=== PATIENT | female | born 1995 | race Two or more races ===

== ENCOUNTER 2022-01-24 10:10 | Emergency (ER) | payer SELFPAY ==
[~2022-01-24] VITALS: Ht 147.3 cm; Wt 49.3 kg
[2022-01-24] MEDS ORDERED: IV NORMAL SALINE 1000ML BAG 1,000 ML IV ONE (11:30)
[2022-01-24] MEDS ORDERED: KETOROLAC 30 MG/ML VIAL. IVP ONE (11:30)
[2022-01-24] MEDS ORDERED: ONDANSETRON PF 4 MG/2 ML VIAL. IVP ONE (11:30)
[2022-01-24 11:31] LABS: BASO % 0 % (0-3); EOS # 0.1 x10^3/uL (0.0-0.7); EOS % 2 % (0-3); HEMATOCRIT 35.2 % (36.0-47.0); HEMOGLOBIN 11.4 g/dL (12.0-15.5); LYMPH % 35 % (24-48); MEAN CORPUSCULAR HEMOGLOBIN 28 pg (25-35); MEAN CORPUSCULAR HGB CONC 33 g/dL (31-37); MEAN CORPUSCULAR VOLUME 85 fL (79-100); MONO # 0.5 x10^3/uL (0.0-1.1); MONO % 10 % (0-9); NEUT % 53 % (31-73); PLATELET COUNT 388 x10^3/uL (140-400); RED BLOOD COUNT 4.13 x10^6/uL (3.50-5.40); RED CELL DISTRIBUTION WIDTH 16.8 % (11.5-14.5); WHITE BLOOD COUNT 5.6 x10^3/uL (4.0-11.0)
[2022-01-24 11:51] LABS: BACTERIA,URINE MODERATE /HPF (0-FEW); RBC,URINE 0 /HPF (0-2)
[2022-01-24 11:54] LABS: CALCIUM 8.7 mg/dL (8.5-10.1); CREATININE 0.7 mg/dL (0.6-1.0); GFR 102.8; POTASSIUM 3.8 mmol/L (3.5-5.1)
[2022-01-24 12:01] LABS: ALBUMIN 3.8 g/dL (3.4-5.0); ALBUMIN/GLOBULIN RATIO 1.1 (1.0-1.7); TOTAL BILIRUBIN 0.4 mg/dL (0.2-1.0); TOTAL PROTEIN 7.4 g/dL (6.4-8.2)
--- NOTE | 2022-01-24 12:22 | RAD ---
US PELVIS COMPLETE History: Lower pelvic pain; status post Spontaneous 6 mo ago; HCG Negative. Comparison: None. Technique: Sonographic examination of the pelvis was performed with transabdominal technique. Findings: Uterus- Uterine parenchyma: Homogeneous without fibroids. Uterine measurements: 8.0 x 3.4 x 5.5 cm Cervix: Unremarkable. Endometrium- Endometrial Stripe: No abnormal fluid collections in the endometrial cavity, no obvious mass, and no abnormal blood flow within the endometrium by Doppler. Thickness: Upper limits of normal, 1.6 cm. Adnexa- Right Ovary: Contains a 2.4 cm dominant follicle. Size: 4.1 x 2.8 x 2.8 cm Doppler: Normal. Left Ovary: Identified and appears normal. Size: 3.1 x 1.6 x 1.6 cm Doppler: Normal. Other: No abnormal adnexal masses. There is small free fluid in the pelvis. The bladder is unremarkab le. Impression: 1. Endometrium measures 1.6 cm at the upper limits of normal, correlate with phase of menstruation. 2. Small pelvic free fluid, possibly physiologic. Electronically signed by: Darrell Crews MD (01/24/2022 12:20 PM) [id number]
--- NOTE | 2022-01-24 12:27 | PHYS DOC ---
Past Medical History Past Surgical History: No Surgical History Smoking Status: Never Smoker Alcohol Use: None General Adult EDM: Chief Complaint: ABDOMINAL PAIN HPI: HPI: Patient is a 26-year-old female presents to the emergency department complaining of intermittent lower pelvic pain since having a miscarriage 6 months ago. States she was , does not know how far along, states she had vaginal bleeding and passed what she thinks was her baby 6 months ago. Has not followed up with a [facility] specialist, was not seen by a medical professional for this. Patient reports she gets very bad cramping once or twice per month since then. Patient reports low pelvic cramping that started yesterday. Denies injury. Denies constipation, states she had a normal bowel movement 2 days ago, patient states she normally goes every 2 days or so. Patient denies increased urinary frequency, urinary pressure, urinary burning, hematuria or other dysuria. Patient denies vaginal bleeding. Patient reports her last menstrual cycle was December 27-2021 with normal duration and flow. Patient reports a weight vaginal discharge stating that she always has this discharge. Denies rashes or lesions to her vagina. Patient denies STI concerns. Patient denies nausea, vomiting, diarrhea or constipation. Patient reports she did vomit twice this morning noticing yellow vomitus, last ate yesterday, denies nausea at this time. Patient denies recent fever or chills, denies chest pains, chest or nasal congestion. Patient denies syncopal or near syncopal episodes, denies dizziness. Patient denies other physical complaints or physical concerns. Patient denies a family history of PCOS or ovarian or uterine cancers. Review of Systems: Review of Systems: 14 body systems of review of systems have been reviewed. See HPI for pertinent positives and negative responses, otherwise all other systems are negative, nonpertinent or noncontributory. Constitutional: Negative except as outlined in HPI above. Skin: Negative except as outlined in HPI above. Eyes: Negative except as outlined in HPI above. HENT: Negative except as outlined in HPI above. Respiratory: Negative except as outlined in HPI above. Cardiovascular: Negative except as outlined in HPI above. GI: Negative except as outlined in HPI above. : Negative except as outlined in HPI above. Musculoskeletal: Negative except as outlined in HPI above. Integument: Negative except as outlined in HPI above. Neurologic: Negative except as outlined in HPI above. Endocrine: Negative except as outlined in HPI above. Lymphatic: Negative except as outlined in HPI above. Psychiatric: Negative except as outlined in HPI above. Heart Score: C/O Chest Pain: No Risk Factors: Risk Factors: DM, Current or recent (<one month) smoker, HTN, HLP, family history of CAD, obesity. Risk Scores: Score 0 - 3: 2.5% MACE over next 6 weeks - Discharge Home Score 4 - 6: 20.3% MACE over next 6 weeks - Admit for Clinical Observation Score 7 - 10: 72.7% MACE over next 6 weeks - Early Invasive Strategies Current Medications: Current Medications Medications (Trade) Dose Ordered Sig/Felipa Start Time Stop Time Status Last Admin Dose Admin Ketorolac Tromethamine (Toradol 30mg Vial) 30 mg 1X ONCE 01/24/22 11:30 01/24/22 11:31 DC 01/24/22 11:36 30 MG Ondansetron HCl (Zofran) 4 mg 1X ONCE 01/24/22 11:30 01/24/22 11:31 DC 01/24/22 11:36 4 MG Sodium Chloride 1,000 ml @ 1,000 mls/hr 1X ONCE 01/24/22 11:30 01/24/22 12:29 01/24/22 11:36 1,000 MLS/HR Allergies: Allergies: Allergies Coded Allergies Type Severity Reaction Last Updated Verified No Known Drug Allergies 01/24/22 No Physical Exam: PE: Constitutional: Well developed, well nourished, no acute distress, non-toxic appearance. 26-year-old female in no apparent distress. HENT: Normocephalic, atraumatic. Eyes: Conjunctiva normal, no discharge. Neck: Normal range of motion. Cardiovascular: Distal cap refill less than 2 seconds, no cyanosis appreciated. Lungs & Thorax: Patient is in no respiratory distress, no adventitious lung sounds appreciated. Abdomen: Bowel sounds normal, soft, no masses, no pulsatile masses. No bruising or skin discoloration of the abdomen. Pain to palpation lower pelvic area, the abdomen is soft, not distended, flat, no skin discoloration appreciated. Skin: Warm, dry, no erythema, no rash. Back: No tenderness, no CVA tenderness. Extremities: No tenderness, no cyanosis, no clubbing, ROM intact, no edema. Neurologic: Alert and oriented X 3, normal motor function, normal sensory f unction, no focal deficits noted. Psychologic: Affect normal, judgement normal, mood normal. : Pelvic examination performed with female ED nurse at bedside for cell inspector, no rashes or lesions of the external vaginal structures, there is no vaginal discharge appreciated externally, speculum exam reveals pink, not erythematous vaginal structures, the cervical os is closed, there is no bleeding in the vaginal vault, there is scant amount of white discharge, wet prep and cultures drawn and sent to lab, no cervical motion tenderness appreciated. Patient tolerated well. Current Patient Data: Labs: Laboratory Tests Test 01/24/22 10:33 01/24/22 10:38 01/24/22 11:20 Urine Collection Type Void Urine Color (Auto) Light orange Urine Turbidity Turbid Urine pH (Auto) 8.0 (<5.0-8.0) Urine Specific [place] 1.023 (1.000-1.030) Urine Protein (Auto) 70 mg/dL (Negative) Urine Glucose (Auto)(UA) Negative mg/dL (Negative) Urine Ketones (Auto) Negative mg/dL (Negative) Urine Blood (Auto) Negative (Negative) Urine Nitrite Negative (Negative) Urine Bilirubin (Auto) Negative (Negative) Urine Urobilinogen (Auto) Normal mg/dL (Normal) Urine Leukocyte Esterase (Auto) Large (Negative) Urine RBC 0 /HPF (0-2) Urine WBC 11-20 /HPF (0-4) Urine Squamous Epithelial Cells Many /LPF Urine Bacteria Moderate /HPF (0-FEW) POC Urine HCG, Qualitative Hcg negative (Negative) White Blood Count 5.6 x10^3/uL (4.0-11.0) Red Blood Count 4.13 x10^6/uL (3.50-5.40) Hemoglobin 11.4 g/dL (12.0-15.5) L Hematocrit 35.2 % (36.0-47.0) L Mean Corpuscular Volume 85 fL (79-100) Mean Corpuscular Hemoglobin 28 pg (25-35) Mean Corpuscular Hemoglobin Concent 33 g/dL (31-37) Red Cell Distribution Width 16.8 % (11.5-14.5) H Platelet Count 388 x10^3/uL (140-400) Neutrophils (%) (Auto) 53 % (31-73) Lymphocytes (%) (Auto) 35 % (24-48) Monocytes (%) (Auto) 10 % (0-9) H Eosinophils (%) (Auto) 2 % (0-3) Basophils (%) (Auto) 0 % (0-3) Neutrophils # (Auto) 3.0 x10^3/uL (1.8-7.7) Lymphocytes # (Auto) 2.0 x10^3/uL (1.0-4.8) Monocytes # (Auto) 0.5 x10^3/uL (0.0-1.1) Eosinophils # (Auto) 0.1 x10^3/uL (0.0-0.7) Basophils # (Auto) 0.0 x10^3/uL (0.0-0.2) Sodium Level 139 mmol/L (136-145) Potassium Level 3.8 mmol/L (3.5-5.1) Chloride Level 105 mmol/L (98-107) Carbon Dioxide Level 27 mmol/L (21-32) Anion Gap 7 (6-14) Blood Urea Nitrogen 12 mg/dL (7-20) Creatinine 0.7 mg/dL (0.6-1.0) Estimated GFR (Cockcroft-Gault) 102.8 BUN/Creatinine Ratio 17 (6-20) Glucose Level 88 mg/dL (70-99) Calcium Level 8.7 mg/dL (8.5-10.1) Total Bilirubin 0.4 mg/dL (0.2-1.0) Aspartate Amino Transferase (AST) 26 U/L (15-37) Alanine Aminotransferase (ALT) 27 U/L (14-59) Alkaline Phosphatase 81 U/L (46-116) Total Protein 7.4 g/dL (6.4-8.2) Albumin 3.8 g/dL (3.4-5.0) Albumin/Globulin Ratio 1.1 (1.0-1.7) Lipase 104 U/L (73-393) Laboratory Tests 01/24/22 11:20 Laboratory Tests 01/24/22 11:20 Microbiology 01/24/22 Wet Prep - Final, Complete Vital Signs: Vital Signs Date Time Temp Pulse Resp B/P (MAP) Pulse Ox O2 Delivery O2 Flow Rate FiO2 01/24/22 10:11 96.1 78 18 119/75 (90) 98 Room Air 96.1 EKG: EKG: [] Radiology/Procedures: Radiology/Procedures: REASON: Lower pelvic pain; status post Spontaneous 6 mo ago;HCG Negative PROCEDURE: PELVIS COMPLETE US PELVIS COMPLETE History: Lower pelvic pain; status post Spontaneous 6 mo ago; HCG Ne gative. Comparison: None. Technique: Sonographic examination of the pelvis was performed with castaneda sabdominal technique. Findings: Uterus- Uterine parenchyma: Homogeneous without fibroids. Uterine measurements: 8.0 x 3.4 x 5.5 cm Cervix: Unremarkable. Endometrium- Endometrial Stripe: No abnormal fluid collections in the endometrial cavity, no obvious mass, and no abnormal blood flow within the endometrium by Doppler. Thickness: Upper limits of normal, 1.6 cm. Adnexa- Right Ovary: Contains a 2.4 cm dominant follicle. Size: 4.1 x 2.8 x 2.8 cm Doppler: Normal. Left Ovary: Identified and appears normal. Size: 3.1 x 1.6 x 1.6 cm Doppler: Normal. Other: No abnormal adnexal masses. There is small free fluid in the pelvis. The bladder is unremarkable. Impression: 1. Endometrium measures 1.6 cm at the upper limits of normal, correlate with phase of menstruation. 2. Small pelvic free fluid, possibly physiologic. Electronically signed by: Darrell Crews MD (01/24/2022 12:20 PM) [id number] REASON: Low pelvic pain PROCEDURE: CT ABD PELV W/ IV CONTRST ONLY CT ABDOMEN+PELVIS W History: Low pelvic pain. Comparison: Pelvic ultrasound 01/24/2022. Technique: CT of the abdomen and pelvis with intravenous contrast. Findings: There is motion artifact throughout the abdomen and pelvis. Lung bases are clear. The liver, gallbladder, pancreas, spleen, adrenal glands, and kidneys are unremarkable. The stomach is decompressed. Small bowel is within normal limits. No evidence of bowel obstruction. Normal caliber appendix. No colonic wall thickening or pericolonic inflammatory changes. The bladder is within normal limits. Uterus is unremarkable. Right ovarian cyst redemonstrated. Small fluid in the pelvic cul-de-sac. Vasculature is within normal limits. No adenopathy. No intra-abdominal free air. Soft tissues and osseous structures are unremarkable. Impression: 1. Small pelvic free fluid which may be physiologic. Otherwise no evidence of acute inflammatory process in the abdomen or pelvis. ------ Exposure: One or more of the following individualized dose reduction techniques were utilized for this examination: 1. Automated exposure control 2. Adjustment of the mA and/or kV according to patient size 3. Use of iterative reconstruction technique. Electronically signed by: Darrell Crews MD (01/24/2022 1:25 PM) [id number] Course & Med Decision Making: Course & Med Decision Making Pertinent Labs and Imaging studies reviewed. (See chart for details) 26-year-old female, vital signs reviewed, presents emerged from concerning severe lower abdominal cramping and pain with vomiting x2 today. Physical examination suspicious for menstrual cramping. Related to patient's explanation of events, will products of conception are a low likelihood, patient not running fever, is not toxic in appearance, will order pelvic ultrasound. Urinalysis assay, urine test. The patient is not for urine test, patient's urine is not infected, does show leukocyte Estrace with 10-20 white blood cells however no bacteria, moderate squamous epithelium, most likely contaminated catch. Pelvic ultrasound is unremarkable, will order CT abdomen pelvis with IV contrast rule out appendicitis. CT abdomen pelvis unremarkable. Upon reevaluation of the patient, patient rep orts her pain has resolved from a 10 out of 10 down to a 5 or 6 out of 10. Discussed with patient all findings, strict follow-up with primary care or [facility] for ongoing management of abdominal discomfort, discussed with patient symptoms likely related to menstrual cramps. Discussed return to ER precautions and concerns, patient gave verbal understanding of and is amenable to ED discharge planning. Patient is Turkmen-speaking, all interaction with patient was interpreted using Kofax historic interpreter [employer] Disclaimer: [employer] Disclaimer: This electronic medical record was generated, in whole or in part, using a voice recognition dictation system. Departure Departure Impression: Primary Impression: Pelvic cramping Disposition: 01 HOME / SELF CARE / HOMELESS Condition: GOOD Referrals: NO PCP (PCP) HAMMAD PASCAL MD Patient Instructions: Pelvic Pain, Female Additional Instructions: Le vieron hoy en el departamento de emergencias por calambres plvicos y dolor. Tony orina no est infectada, no est embarazada para la prueba de embarazo en orina, la ecografa de tony pelvis no mostr ningn hallazgo preocupante, no hay quistes en marlen ovarios, parece que est cerca de comenzar tony perodo, tony dolor puede estar relacionado con calambres menstruales Katelyn tomografa computarizada no mostr ningn hallazgo preocupante, no tiene apendicitis, no hay signos de infeccin en el abdomen o la pelvis. Puede toyin Tylenol o Motrin de venta zully para los omar y molestias constantes. Le he recomendado a un especialista en obstetricia y ginecologa, el Dr. Pascal, para que realice un seguimiento para el control continuo del dolor. Maria Ines adjunto katelyn lista de clnicas del katia y proveedores de atencin mdica con los que puede establecer atencin primaria. Por favor llame maana para la chani ms pronto. [place] por visitar nuestro Departamento de Emergencias. Fue un placer atenderlo hoy en el departamento de emergencias y le agradecemos que nos haya confiado tony atencin. Si surge algn problema adicional, no dude en volver a visitarnos. Eusebio un seguimiento con tony proveedor de atencin primaria para que puedan planificar atencin adicional si es necesario y conocer el problema que tuvo. Si los sntomas empeoran, regrese al Departamento de Emergencias. Cualquier sntoma preocupante que comience, harshad dolor en el pecho, falta de aire, debilidad o entumecimiento en un lado del cuerpo, fiebre cate o cualquier otro sntoma preocupante, regresa a la adri de e mergencias. You were seen today in the emergency department for pelvic cramping and pain. Your urine is not infected, you are not for urine test, the sonogram of your pelvis did not show any concerning findings, there are no cysts on your ovaries, it appears you are near starting your period, your pain may be related to menstrual cramping. A CT scan did not show any concerning findings, you do not have an appendicitis, there is no sign of infection in your abdomen or pelvis. You may take [id number] Tylenol or Motrin for ongoing aches and pains. I have recommended an [facility] [employer] specialist Dr. Pascal for you to follow- up with for ongoing pain management. I am also attaching a list of area clinics and healthcare providers for you to establish primary care with. Please call tomorrow for the soonest appointment. Thank you for visiting our Emergency Department. It was a pleasure taking care of you today in the emergency department and we appreciate you trusting us with your care. If any additional problems come up don't hesitate to return to visit us. Please follow up with your primary care provider so they can plan additional care if needed and know about the problem that you had. If symptoms worsen come back to the Emergency Department. Any concerning symptoms that start such as chest pain, shortness of air, weakness or numbness on one side of the body, running high fevers or any other concerning symptoms return to the ER. HAMMAD REYNA APRN Jan 24, 2022 12:27
[2022-01-24] MEDS ORDERED: MORPHINE SULFATE 4 MG/ML INJ. IVP ONE (12:30)
[2022-01-24] MEDS ORDERED: IOHEXOL 300 MG/ML 100ML VIAL. IV ONE (12:45)
[2022-01-24] MEDS ORDERED: CONTRAST GIVEN. MC PRN (12:45)
--- NOTE | 2022-01-24 13:28 | RAD ---
CT ABDOMEN+PELVIS W History: Low pelvic pain. Comparison: Pelvic ultrasound 01/24/2022. Technique: CT of the abdomen and pelvis with intravenous contrast. Findings: There is motion artifact throughout the abdomen and pelvis. Lung bases are clear. The liver, gallbladder, pancreas, spleen, adrenal glands, and kidneys are unrem arkable. The stomach is decompressed. Small bowel is within normal limits. No evidence of bowel obstruction. N ormal caliber appendix. No colonic wall thickening or pericolonic inflammatory changes. The bladder is within normal limits. Uterus is unremarkable. Right ovarian cyst redemonstrated. Small fluid in the pelvic cul-de-sac. Vasculature is within normal limits. No adenopathy. No intra-abdominal free air. Soft tissues and oss eous structures are unremarkable. Impression: 1. Small pelvic free fluid which may be physiologic. Otherwise no evidence of acute inflammatory pro cess in the abdomen or pelvis. ------ Exposure: One or more of the following individualized dose reduction techniques were utilized for thi s examination: 1. Automated exposure control 2. Adjustment of the mA and/or kV according to patient size 3. Use of iterative reconstruction technique. Electronically signed by: Darrell Crews MD (01/24/2022 1:25 PM) [id number]
[2022-01-24 14:33] VITALS: BP 95/58
== END 2022-01-24 14:33 | disposition home or self-care (01) ==
LOC: ER 10:10
DX: R10.2 Pelvic and perineal pain (principal); N89.8 Other specified noninflammatory disorders of vagina
CPT/HCPCS: 76856; 80053; 81001; 81025; 83690; 85025; 87086; 87491; 87591; 96361; 96374; 96375; 99285; J1885; J2405; J7030; Q0111; Q9967